=== PATIENT | female | born 1930 | race Caucasian/White ===

== ENCOUNTER 2017-05-05 10:47 | Emergency (ER) | payer MEDICARE ==
[2017-05-05] MEDS ORDERED: IV RINGERS SOLUTION,LACTATED 1,000 ML IV SCH (11:00)
--- NOTE | 2017-05-05 11:18 | PHYS DOC ---
Past History Past Medical History: No Pertinent History Past Surgical History: No Surgical History Alcohol Use: None Drug Use: None Adult General Chief Complaint Chief Complaint: DIARRHEA HPI HPI Patient is a 86-year-old female who was sent to the ED by her primary care physician, Dr. Carlos, for the complaint of diarrhea. This began on Monday evening, 05/03. It continued all day yesterday, 05/04. She had many episodes of watery stools. She continues to have watery stools today. She took Imodium yesterday, apparently without relief. She has not had chronic problems with diarrhea. No blood in her stools. No fever or chills. Nausea, no vomiting. She has not recently taken antibiotics. She's had no recent change in her diet or medications to explain this. She has not been around anyone sick. She has some crampy abdominal discomfort but no significant abdominal pain. Review of Systems Review of Systems Constitutional: Denies fever or chills [] Respiratory: Denies cough or shortness of breath [] Cardiovascular: Denies chest pain GI: As in history of present illness : Denies dysuria or hematuria [] Musculoskeletal: Denies back pain or joint pain [] Integument: Denies rash or skin lesions [] Neurologic: Denies headache, focal weakness or sensory changes [] Current Medications Current Medications Current Medications Medications (Trade) Dose Ordered Sig/Ranjith Start Time Stop Time Status Last Admin Dose Admin Lactated Ringer's 1,000 ml @ 1,000 mls/hr Q1H 05/05/17 11:00 Allergies Allergies Allergies Coded Allergies Type Severity Reaction Last Updated Verified No Known Drug Allergies 05/05/17 No Physical Exam Physical Exam Constitutional: Well developed, well nourished, no acute distress, non-toxic appearance. Alert, mentating normally, ambulatory, does not appear dehydrated. HENT: Normocephalic, atraumatic, bilateral external ears normal, nose normal. [] Eyes: conjunctiva normal, no discharge. [] Neck: Normal range of motion, no stridor. [] Cardiovascular:Heart irregularly irregular rhythm, no murmur [] Lungs & Thorax: Bilateral breath sounds clear to auscultation [] Abdomen: Bowel sounds normal, soft, nondistended, no masses, no pulsatile masses. Mildly tender to palpation in the lower abdomen, nonlocalized, no rebound or guarding. Skin: Warm, dry, no erythema, no rash. [] Extremities: No tenderness, no cyanosis, no clubbing, ROM intact, no edema. [] Neurologic: Alert and oriented X 3, normal motor function, normal sensory function, no focal deficits noted. [] Current Patient Data Vital Signs Vital Signs Date Time Temp Pulse Resp B/P (MAP) Pulse Ox O2 Delivery O2 Flow Rate FiO2 05/05/17 10:47 98.3 54 16 98 Room Air EKG EKG 12-lead EKG read by me. Sinus rhythm with frequent PACs and sinus arrhythmia. There are no acute ST or T wave changes indicative of ischemia or infarction. No STEMI. 1332 [] Radiology/Procedures Radiology/Procedures [] Course & Med Decision Making Course & Med Decision Making Pertinent Labs and Imaging studies reviewed. (See chart for details) 86-year-old female presents with diarrhea for less than 48 hours. She has had many watery stools without blood. Discussed with the patient that we will check some labs. If she can give us a stool sample we will send it for testing. She denies previous history of fluid overload, she is not on a diuretic, so we will give her a liter of IV fluids. Patient rested comfortably and got a liter of IV fluids. She drank a small bottle of Gatorade. She gave us a stool sample which was liquid and green in color. She was here over 2 hours and had one small stool toward the end of her ED stay. Labs showing mild dehydration and mild hypokalemia. She was given a dose of oral potassium. Patient's heart rate was somewhat variable and was irregularly irregular on exam , therefore, EKG was done which showed sinus rhythm with PACs and sinus arrhythmia. Patient is very alert, appears well, was rehydrated in the ED, I don't believe there is any indication to admit her to the hospital. She is not vomiting. She does not want to be admitted to the hospital. Return precautions were given. Her son-in-law picked her up. [] Dragon Disclaimer Dragon Disclaimer This chart was dictated in whole or in part using Voice Recognition software in a busy, high-work load, and often noisy Emergency Department environment. It may contain unintended and wholly unrecognized errors or omissions. Departure Departure: Impression: Primary Impression: Diarrhea Additional Impression: Hypokalemia due to loss of potassium Disposition: 01 HOME, SELF-CARE Condition: STABLE Referrals: DARCY CARLOS MD (PCP) Patient Instructions: Diarrhea, [id number], Diet for Diarrhea, Adult, Hypokalemia-Brief Additional Instructions: Your potassium was a little low, people often lose potassium when they have diarrhea. Eat an extra banana every day while you are having diarrhea. Drink plenty of fluids such as Gatorade. If not better by next week, return or see your doctor. Problem Qualifiers PAVITHRA ANDERSON MD May 05, 2017 11:18
[2017-05-05 11:24] LABS: BASO % 0 % (0-3); EOS # 0.2 x10^3/uL (0.0-0.7); EOS % 2 % (0-3); HEMATOCRIT 44.5 % (36.0-47.0); HEMOGLOBIN 14.7 g/dL (12.0-15.5); LYMPH # 1.9 x10^3/uL (1.0-4.8); LYMPH % 17 % (24-48); MEAN CORPUSCULAR HEMOGLOBIN 29 pg (25-35); MEAN CORPUSCULAR HGB CONC 33 g/dL (31-37); MEAN CORPUSCULAR VOLUME 86 fL (79-100); MONO # 2.1 x10^3/uL (0.0-1.1); MONO % 19 % (0-9); NEUT # 6.6 x10^3uL (1.8-7.7); NEUT % 61 % (31-73); PLATELET COUNT 236 x10^3/uL (140-400); RED BLOOD COUNT 5.16 x10^6/uL (3.50-5.40); WHITE BLOOD COUNT 10.9 x10^3/uL (4.0-11.0)
[2017-05-05 11:39] LABS: ALBUMIN 3.7 g/dL (3.4-5.0); ALBUMIN/GLOBULIN RATIO 0.9 (1.0-1.7); CALCIUM 8.8 mg/dL (8.5-10.1); CREATININE 1.4 mg/dL (0.6-1.0); GFR 35.5; TOTAL BILIRUBIN 0.8 mg/dL (0.2-1.0); TOTAL PROTEIN 7.9 g/dL (6.4-8.2)
[2017-05-05 11:40] LABS: POTASSIUM 2.9 mmol/L (3.5-5.1)
[2017-05-05] MEDS ORDERED: POTASSIUM CHLORIDE 20 MEQ/15 ML ORAL LIQUID. PO ONE (12:15)
[2017-05-05 13:25] VITALS: BP 144/62
--- NOTE | 2017-05-05 15:21 | EKG ---
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
== END 2017-05-05 13:55 | disposition home or self-care (01) ==
LOC: ER 10:47
DX: R19.7 Diarrhea, unspecified (principal); E87.6 Hypokalemia; E86.0 Dehydration
CPT/HCPCS: 36415; 80053; 85027; 87045; 93005; 96360; 99285; J7120

== ENCOUNTER → 2017-12-27 | Outpatient (CLI) | payer MEDICARE ==
--- NOTE | 2017-12-27 14:48 | RAD ---
Right lower extremity venous ultrasound, 12/27/2017 : History: Right calf pain Duplex evaluation including grayscale, color flow and spectral Doppler analysis was performed. The femoral and popliteal veins show no filling defects to suggest DVT. The visualized deep veins in the right calf are unremarkable. A fluid collection along the anterior aspect of the knee is compatible with a moderate-sized joint effusion. IMPRESSION: 1. There is no sonographic evidence of deep vein thrombosis in the right lower extremity. 2. Moderate sized knee joint effusion.
--- NOTE | 2017-12-27 15:25 | RAD ---
Right lower extremity arterial ultrasound, 12/27/2017: History: Right leg and calf pain Duplex evaluation of the major arteries in the right lower extremity was performed including grayscale, color-flow and spectral Doppler analysis. There are mild scattered atherosclerotic plaques, some which are partially calcified. The right common femoral and superficial femoral and popliteal arteries all demonstrate biphasic Doppler waveforms. No significant focal velocity acceleration is seen in these vessels to suggest significant focal stenosis. Patent anterior tibial, posterior tibial and peroneal arteries are present in the right lower leg demonstrating biphasic Doppler waveforms. The dorsalis pedis artery is also patent demonstrating a good amplitude, monophasic Doppler waveform. IMPRESSION: Mild scattered atherosclerotic plaquing in the right lower extremity without evidence of high-grade focal stenosis.
== END | disposition home or self-care (01) ==
LOC: US 12:22
PROVIDERS: ATTEND Nurse Practitioner Adult Health
DX: I70.211 Atherosclerosis of native arteries of extremities with intermittent claudication, right leg (principal); M25.461 Effusion, right knee; E87.6 Hypokalemia
CPT/HCPCS: 93926; 93971

== ENCOUNTER 2018-02-13 16:53 | Inpatient (IN) | payer MEDICARE ==
[~2018-02-13] VITALS: Ht 170.2 cm; Wt 54.9 kg
--- NOTE | 2018-02-13 17:14 | EKG ---
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
[2018-02-13] MEDS ORDERED: ASPIRIN 81 MG TAB.CHEW PO ONE (17:15)
--- NOTE | 2018-02-13 17:25 | PHYS DOC ---
Past History Past Medical History: Arthritis Past Surgical History: Appendectomy, Other Alcohol Use: None Drug Use: None Adult General Chief Complaint Chief Complaint: CHEST PAIN HPI HPI 87-year-old female presents with chest pain. She states the pain started about 2 hours ago while she was sitting on a couch. She describes the pain as a sharp cramp in the right side of her chest. The pain starts under her breast and wraps around to her back. The pain at its worst was 8 out of 10. At this time she says it is a 1 or 2. It does seem to come and go in intensity. She denies nausea, vomiting, shortness of breath or diaphoresis. She history of cardiac problems. Her recently in his bare was yesterday. The patient has not been eating well and then ate a large lunch today. The patient and her family is concerned that this could be cardiac. Review of Systems Review of Systems Constitutional: Denies fever or chills [] Eyes: Denies change in visual acuity, redness, or eye pain [] HENT: Denies nasal congestion or sore throat [] Respiratory: Denies cough or shortness of breath [] Cardiovascular: No additional information not addressed in HPI [] GI: Denies abdominal pain, nausea, vomiting, bloody stools or diarrhea [] : Denies dysuria or hematuria [] Musculoskeletal: Denies back pain or joint pain [] Integument: Denies rash or skin lesions [] Neurologic: Denies headache, focal weakness or sensory changes [] Endocrine: Denies polyuria or polydipsia [] All other systems were reviewed and found to be within normal limits, except as documented in this note. Current Medications Current Medications Current Medications Medications (Trade) Dose Ordered Sig/[facility] Start Time Stop Time Status Last Admin Dose Admin Aspirin (Children'S Aspirin) 324 mg 1X ONCE 02/13/18 17:15 02/13/18 17:17 DC Allergies Allergies Allergies Coded Allergies Type Severity Reaction Last Updated Verified No Known Drug Allergies 05/05/17 No Physical Exam Physical Exam Constitutional: Well developed, well nourished, no acute distress, non-toxic appearance. [] HENT: Normocephalic, atraumatic, bilateral external ears normal, oropharynx moist, no oral exudates, nose normal. [] Eyes: PERRLA, EOMI, conjunctiva normal, no discharge. [] Neck: Normal range of motion, no tenderness, supple, no stridor. [] Cardiovascular:Heart rate regular rhythm, no murmur [] Lungs & Thorax: Bilateral breath sounds clear to auscultation [] Abdomen: Bowel sounds normal, soft, no tenderness, no masses, no pulsatile masses. [] Skin: Warm, dry, no erythema, no rash. [] Back: No tenderness, no CVA tenderness. [] Extremities: No tenderness, no cyanosis, no clubbing, ROM intact, no edema. [] Neurologic: Alert and oriented X 3, normal motor function, normal sensory function, no focal deficits noted. [] Psychologic: Affect normal, judgement normal, mood normal. [] Current Patient Data Vital Signs Vital Signs Date Time Temp Pulse Resp B/P (MAP) Pulse Ox O2 Delivery O2 Flow Rate FiO2 02/13/18 17:14 98.2 77 18 96 Room Air EKG EKG Normal sinus rhythm, rate 84, normal axis, no ST elevations or depressions, PACs [] Radiology/Procedures Radiology/Procedures AP portable chest radiograph 02/13/2018 Clinical History: Chest pain. An AP erect portable digital radiograph of the chest was obtained. Comparison study is dated 02/16/2012. The cardiac silhouette is mildly enlarged. The thoracic aorta is mildly tortuous. No acute pulmonary infiltrate is seen. No pleural effusion or pneumothorax is noted. Degenerative changes are seen involving the thoracic spine. Impression: No acute abnormality is seen. Electronically signed by: Billy Almeida MD (02/13/2018 5:36 PM) [facility][] Course & Med Decision Making Course & Med Decision Making Pertinent Labs and Imaging studies reviewed. (See chart for details) The patient's labs are significant for an elevated troponin of 0.024. Her EKG did not show elevations. Chest x-rays negative. I discussed the case with the hospitalist, Dr. Rodriguez and he has agreed to admit the patient for chest pain rule out. I discussed this with the patient and her family and they are in agreement with admission. She has a partial CODE STATUS as she does not wish to be intubated. She does want chest compressions and other interventions. [] Dragon Disclaimer Dragon Disclaimer This electronic medical record was generated, in whole or in part, using a voice recognition dictation system. Departure Departure: Referrals: DARCY BEY MD (PCP) CHANDLER PEREZ DO February 13, 2018 17:25
--- NOTE | 2018-02-13 17:39 | RAD ---
AP portable chest radiograph 02/13/2018 Clinical History: Chest pain. An AP erect portable digital radiograph of the chest was obtained. Comparison study is dated 02/16/2012. The cardiac silhouette is mildly enlarged. The thoracic aorta is mildly tortuous. No acute pulmonary infiltrate is seen. No pleural effusion or pneumothorax is noted. Degenerative changes are seen involving the thoracic spine. Impression: No acute abnormality is seen. Electronically signed by: Billy Almeida MD (02/13/2018 5:36 PM) [facility]
[2018-02-13 17:46] LABS: BASO # 0.1 x10^3/uL (0.0-0.2); BASO % 1 % (0-3); EOS # 0.2 x10^3/uL (0.0-0.7); EOS % 3 % (0-3); HEMOGLOBIN 13.7 g/dL (12.0-15.5); LYMPH # 1.7 x10^3/uL (1.0-4.8); LYMPH % 25 % (24-48); MEAN CORPUSCULAR HEMOGLOBIN 28 pg (25-35); MEAN CORPUSCULAR HGB CONC 33 g/dL (31-37); MEAN CORPUSCULAR VOLUME 85 fL (79-100); MONO # 0.9 x10^3/uL (0.0-1.1); MONO % 14 % (0-9); NEUT % 58 % (31-73); PLATELET COUNT 228 x10^3/uL (140-400); RED BLOOD COUNT 4.85 x10^6/uL (3.50-5.40); RED CELL DISTRIBUTION WIDTH 14.4 % (11.5-14.5); WHITE BLOOD COUNT 6.9 x10^3/uL (4.0-11.0)
[2018-02-13 17:56] LABS: ALBUMIN 3.8 g/dL (3.4-5.0); ALBUMIN/GLOBULIN RATIO 1.2 (1.0-1.7); CALCIUM 8.8 mg/dL (8.5-10.1); CREATININE 0.9 mg/dL (0.6-1.0); POTASSIUM 3.9 mmol/L (3.5-5.1); TOTAL BILIRUBIN 0.5 mg/dL (0.2-1.0); TOTAL PROTEIN 7.1 g/dL (6.4-8.2)
[2018-02-13] MEDS ORDERED: ONDANSETRON PF 4 MG/2 ML VIAL. IV PRN (18:15)
[2018-02-13 19:10] LABS: BILIRUBIN,URINE NEG (NEG); CLARITY,URINE CLEAR; COLOR,URINE STRAW; GLUCOSE,URINE NEG (NEG); NITRITE,URINE NEG (NEG); UROBILINOGEN,URINE 0.2 mg/dL (0.2 mg/dL)
[2018-02-13 19:11] LABS: BACTERIA,URINE MOD /HPF (0-FEW); RBC,URINE OCC /HPF (0-2); SQUAMOUS EPITHELIAL CELL,UR OCC /LPF
[2018-02-13 19:14] VITALS: BP 173/78
[2018-02-13 20:42] VITALS: BP 146/60
[2018-02-13 22:57] VITALS: BP 166/72
[2018-02-14 06:13] VITALS: BP 169/69
[2018-02-14 06:51] LABS: BASO # 0.1 x10^3/uL (0.0-0.2); BASO % 1 % (0-3); EOS # 0.3 x10^3/uL (0.0-0.7); EOS % 5 % (0-3); HEMATOCRIT 43.4 % (36.0-47.0); HEMOGLOBIN 14.5 g/dL (12.0-15.5); LYMPH # 1.7 x10^3/uL (1.0-4.8); LYMPH % 29 % (24-48); MEAN CORPUSCULAR HEMOGLOBIN 29 pg (25-35); MEAN CORPUSCULAR HGB CONC 33 g/dL (31-37); MEAN CORPUSCULAR VOLUME 85 fL (79-100); MONO # 0.7 x10^3/uL (0.0-1.1); MONO % 12 % (0-9); NEUT # 3.1 x10^3uL (1.8-7.7); NEUT % 53 % (31-73); PLATELET COUNT 210 x10^3/uL (140-400); RED CELL DISTRIBUTION WIDTH 14.4 % (11.5-14.5); WHITE BLOOD COUNT 5.9 x10^3/uL (4.0-11.0)
[2018-02-14 07:01] LABS: CALCIUM 8.6 mg/dL (8.5-10.1); CREATININE 0.8 mg/dL (0.6-1.0); GFR 67.5; POTASSIUM 3.9 mmol/L (3.5-5.1)
[2018-02-14] MEDS ORDERED: LISINOPRIL 10 MG TABLET PO SCH (09:00)
[2018-02-14] MEDS ORDERED: NITROGLYCERIN SUBLINGUAL 0.4 MG BOTTLE OF 25. SL ONE (10:15)
--- NOTE | 2018-02-14 11:00 | EKG ---
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
[2018-02-14 11:05] VITALS: BP 114/70
[2018-02-14] MEDS ORDERED: LISI10TA2 PO (13:18)
[2018-02-14] MEDS ORDERED: TRAM50TA PO (13:18)
[2018-02-14] MEDS ORDERED: ASPI-630 PO (13:18)
--- NOTE | 2018-02-14 13:31 | PDOC2 ---
CONSULT Date of Admission DATE: 02/14/18 TIME: 13:21 Reason for Consult: Chest pain. Referring Physician: Arron Carlos MD Chief Complaint Chest pain. Source: Patient Problem List Problems Medical Problems: (1) Chest pain Status: Acute History of Present Illness She is a pleasant 87-year-old female with no known history of coronary artery disease. Approximately 2 weeks ago, her fell at home. She tried to help him up. At that time she developed some low back pain. This has been improving over time. However, last week her actually . She has been very busy with the . She had been going to the confucianist and her family had been helping her up and down the stairs by holding her arms. Two nights ago she started developing mild right-sided chest pain with radiation towards her back. This was somewhat pleuritic in nature. This was happening off and on Monday night. Monday when she woke up she felt better. However, she went have lunch with family and shortly after eating lunch developed more severe right-sided pleuritic chest pain with radiation to her back. Because of this, she came to the hospital for further evaluation. She is still been having some intermittent right-sided back pain and right-sided chest pain. She denies shortness of breath but it does hurt to breathe when she has the chest pain. This is not constant. Moving seems to bring this on or make it worse when it is occurring. She denies any other associated complaints. She denies paroxysmal nocturnal dyspnea, orthopnea, palpitations, lightheadedness, syncope , or lower extremity edema. Because of the chest pain, a cardiology consultation was requested. Cardiovascular: HTN Pulmonary: No pertinent hx GI: GERD Musculoskeletal: Osteoarthritis Family History She does not know of any family history of premature coronary artery disease. Smoke: No ALCOHOL: none Lives: Alone Current Medications Current Medications Aspirin (Children'S Aspirin) 324 mg 1X ONCE PO Last administered on 02/13/18at 18:14; Start 02/13/18 at 17:15; Stop 02/13/18 at 17:17; Status DC Ondansetron HCl (Zofran) 4 mg PRN Q4HRS PRN IV NAUSEA/VOMITING; Start 02/13/18 at 18:15; Stop 02/14/18 at 18:14 Lisinopril (Prinivil) 10 mg DAILY PO Last administered on 02/14/18at 09:44; Start 02/14/18 at 09:00 Nitroglycerin (Nitrostat) 0.4 mg 1X ONCE SL Last administered on 02/14/18at 10: 29; Start 02/14/18 at 10:15; Stop 02/14/18 at 10:16; Status DC Aspirin (Children'S Aspirin) 81 mg DAILYWBKFT PO ; Start 02/14/18 at 17:00 Allergies: Coded Allergies: No Known Drug Allergies (Unverified , 05/05/17) Review of System Ten point review of systems is as per the history of present illness, otherwise negative. General: Alert, Oriented X3, Cooperative, No acute distress HEENT: Atraumatic, EOMI, Mucous membr. moist/pink Lungs: Clear to auscultation, Normal air movement Heart: Regular rate, Normal S1, Normal S2, No murmurs Abdomen: Normal bowel sounds, Soft, No tenderness Extremities: No clubbing, No cyanosis, No edema, Normal pulses, No tenderness/ swelling Skin: No rashes, No breakdown, No significant lesion Neuro: Normal gait, Normal speech, Normal tone Psych/Mental Status: Mental status NL, Mood NL VITALS Vital Signs Date Time Temp Pulse Resp B/P (MAP) Pulse Ox O2 Delivery O2 Flow Rate FiO2 02/14/18 11:05 98.2 73 20 114/70 (85) 94 Room Air Labs Laboratory Tests Test 02/13/18 17:12 02/13/18 18:41 02/13/18 22:59 02/14/18 06:37 White Blood Count 6.9 x10^3/uL (4.0-11.0) 5.9 x10^3/uL (4.0-11.0) Red Blood Count 4.85 x10^6/uL (3.50-5.40) 5.10 x10^6/uL (3.50-5.40) Hemoglobin 13.7 g/dL (12.0-15.5) 14.5 g/dL (12.0-15.5) Hematocrit 41.0 % (36.0-47.0) 43.4 % (36.0-47.0) Mean Corpuscular Volume 85 fL (79-100) 85 fL (79-100) Mean Corpuscular Hemoglobin 28 pg (25-35) 29 pg (25-35) Mean Corpuscular Hemoglobin Concent 33 g/dL (31-37) 33 g/dL (31-37) Red Cell Distribution Width 14.4 % (11.5-14.5) 14.4 % (11.5-14.5) Platelet Count 228 x10^3/uL (140-400) 210 x10^3/uL (140-400) Neutrophils (%) (Auto) 58 % (31-73) 53 % (31-73) Lymphocytes (%) (Auto) 25 % (24-48) 29 % (24-48) Monocytes (%) (Auto) 14 % (0-9) 12 % (0-9) Eosinophils (%) (Auto) 3 % (0-3) 5 % (0-3) Basophils (%) (Auto) 1 % (0-3) 1 % (0-3) Neutrophils # (Auto) 4.0 x10^3uL (1.8-7.7) 3.1 x10^3uL (1.8-7.7) Lymphocytes # (Auto) 1.7 x10^3/uL (1.0-4.8) 1.7 x10^3/uL (1.0-4.8) Monocytes # (Auto) 0.9 x10^3/uL (0.0-1.1) 0.7 x10^3/uL (0.0-1.1) Eosinophils # (Auto) 0.2 x10^3/uL (0.0-0.7) 0.3 x10^3/uL (0.0-0.7) Basophils # (Auto) 0.1 x10^3/uL (0.0-0.2) 0.1 x10^3/uL (0.0-0.2) Sodium Level 140 mmol/L (136-145) 143 mmol/L (136-145) Potassium Level 3.9 mmol/L (3.5-5.1) 3.9 mmol/L (3.5-5.1) Chloride Level 104 mmol/L (98-107) 106 mmol/L (98-107) Carbon Dioxide Level 27 mmol/L (21-32) 29 mmol/L (21-32) Anion Gap 9 (6-14) 8 (6-14) Blood Urea Nitrogen 24 mg/dL (7-20) 21 mg/dL (7-20) Creatinine 0.9 mg/dL (0.6-1.0) 0.8 mg/dL (0.6-1.0) Estimated GFR (Cockcroft-Gault) 59.0 67.5 BUN/Creatinine Ratio 27 (6-20) Glucose Level 100 mg/dL (70-99) 84 mg/dL (70-99) Calcium Level 8.8 mg/dL (8.5-10.1) 8.6 mg/dL (8.5-10.1) Total Bilirubin 0.5 mg/dL (0.2-1.0) Aspartate Amino Transf (AST/SGOT) 21 U/L (15-37) Alanine Aminotransferase (ALT/SGPT) 17 U/L (14-59) Alkaline Phosphatase 96 U/L (46-116) Troponin I Quantitative 0.024 ng/mL (0-0.055) 0.020 ng/mL (0-0.055) 0.026 ng/mL (0-0.055) Total Protein 7.1 g/dL (6.4-8.2) Albumin 3.8 g/dL (3.4-5.0) Albumin/Globulin Ratio 1.2 (1.0-1.7) Urine Collection Type Unknown Urine Color Straw Urine Clarity Clear Urine pH 6.5 Urine Specific [place] <=1.005 Urine Protein Neg (NEG-TRACE) Urine Glucose (UA) Neg mg/dL (NEG) Urine Ketones (Stick) Neg mg/dL (NEG) Urine Blood Small (NEG) Urine Nitrite Neg (NEG) Urine Bilirubin Neg (NEG) Urine Urobilinogen Dipstick 0.2 mg/dL (0.2 mg/dL) Urine Leukocyte Esterase Mod (NEG) Urine RBC Occ /HPF (0-2) Urine WBC 5-10 /HPF (0-4) Urine Squamous Epithelial Cells Occ /LPF Urine Bacteria Mod /HPF (0-FEW) Test 02/14/18 10:15 Creatine Kinase 72 U/L (26-192) Creatine Kinase MB (Mass) 1.2 ng/mL (0.0-3.6) Creatine Kinase MB Relative Index 1.7 % (0-4) Troponin I Quantitative < 0.017 ng/mL (0-0.055) Assessment/Plan Chest pain. Exact etiology unclear. The symptoms are somewhat atypical in nature in that this is pleuritic and right-sided. She has borderline elevated troponin levels but no ischemic changes on her electrocardiogram. I suspect this may be done cardiac chest pain due to gastroesophageal reflux disease or perhaps muscle strain due to the recent lifting she had been doing. I recommend she take aspirin 81 mg once a day. I will arrange for an outpatient stress test and echocardiogram given her advanced age. I would recommend she be discharged with aspirin and a proton pump inhibitor. Abnormal electrocardiogram. She has poor R-wave progression on her electrocardiogram. This could be due to lead placement. Nonetheless, we will evaluate this further with an outpatient stress test as outlined above. Essential hypertension. Blood pressure appears reasonably controlled with the present medications. These should be continued. Gastroesophageal reflux disease. As above, this could be contributing to the patient's symptoms, especially in light of the fact that she just lost her of many years. I recommend she take a proton pump inhibitor at discharge. Disposition. From a cardiac standpoint, the patient can be discharged home. My office will be in touch with patient to schedule a stress test and echocardiogram and then follow in our office. PORSHA MOTLEY Jr, MD February 14, 2018 13:31
[2018-02-14] MEDS ORDERED: ASPIRIN 81 MG TAB.CHEW PO SCH (17:00)
--- NOTE | 2018-02-20 01:35 | HP ---
ADMIT DATE: 02/13/2018 HISTORY OF PRESENT ILLNESS: The patient is an 87-year-old female. The patient about 2 hours prior to being admitted through the Emergency Room, noted it to start on her left breast and wrapped around to her back. The patient has noted the pain to be about 8/10. She has just come back from the of her and she has a history of cardiac problems. The patient has not been eating well, had a large lunch and now is having severe pain, came in because of the chest pain and rule out CO protocol was entertained for her admission. PAST MEDICAL HISTORY: Chest pain, hip replacement. IMMUNIZATIONS: Influenza and pneumococcal are all up to date. ALLERGIES: No known drug allergies. FAMILY HISTORY: Sister with ovarian cancer. Father and mother both with myocardial infarctions. HOME MEDICATIONS: Include lisinopril 10, aspirin 81, and tramadol 50 p.r.n. SOCIAL HISTORY: No smoking, no alcohol or drug use. REVIEW OF SYSTEMS: The patient denies any headaches, visual change, blurred vision, double vision. Denies any melena, hematochezia, hematemesis. NEUROLOGIC: The patient is alert and oriented. PHYSICAL EXAMINATION: GENERAL: This is a very pleasant white female looking somewhat sad and depressed over the loss of her . VITAL SIGNS: Blood pressure 160/70, respiratory 18, pulse 60, afebrile. HEENT: The patient's head was atraumatic, normocephalic. Eyes: PERRLA without jaundice. Mouth and throat were normal. NECK: Supple, no JVD or thyromegaly. LUNGS: Diminished throughout, but clear. CARDIOVASCULAR: Regular sinus rhythm, S1, S2, without murmur, rub, thrill, or extra heart sounds. ABDOMEN: The patient's abdomen is soft, nontender, no rebound or guarding. Positive bowel sounds, no hepatosplenomegaly noted. EXTREMITIES: No clubbing, cyanosis nor edema.. NEUROLOGIC: The patient was alert and oriented x 3. LABORATORY DATA: CBC was normal. Chemistries so far have been negative. The patient's urine was also negative except for 5-10 whites. PLAN: The patient will be sent for culture and sensitivity there. Otherwise, the patient will be admitted for rule out CO protocol and make further evaluation on her as indicated and make further assessment at that time. DARCY BEY MD DR: Thai JOB#: [id number] / [id number]
== END 2018-02-14 13:51 | disposition home or self-care (01) | DRG 392 ==
LOC: ER 16:53 → 1 SOUTH 18:20
PROVIDERS: ADMIT Family Medicine; ATTEND Family Medicine
DX: K21.9 Gastro-esophageal reflux disease without esophagitis (principal); I10 Essential (primary) hypertension; M19.90 Unspecified osteoarthritis, unspecified site; Z90.49 Acquired absence of other specified parts of digestive tract; M54.5 Low back pain; R94.31 Abnormal electrocardiogram [ECG] [EKG]
CPT/HCPCS: 36415; 71045; 80048; 80053; 80061; 81001; 82553; 84484; 85025; 87086; 87186; 93005; 99285-25